=== PATIENT | female | born 1975 | race Caucasian/White ===

== ENCOUNTER → 2017-09-12 | Outpatient (CLI) | payer BC, OTHER ==
--- NOTE | 2017-09-12 09:28 | MM ---
Reason for exam: additional evaluation requested from prior study. Last mammogram was performed 1 year and 10 months ago. History: Patient history of other cancer. Family history of breast cancer in maternal cousin. Benign US breast aspiration single RT of the right breast, November 16, 2015. Benign US biopsy breast VAD LT of the left breast, November 16, 2015. Physical Findings: Nurse Summary: 2cm nodule in the right breast at 10-11 o'clock and 1cm nodule in the left breast at 12 o'clock, cystic cluster (nurse mj). MG Diagnostic Mammo w CAD HUNTER Bilateral CC and MLO view(s) were taken. Prior study comparison: November 16, 2015, bilateral MG diagnostic antoni BI wo CAD. November 09, 2015, bilateral MG 3d diag mammo w/cad HUNTER. The breast tissue is extremely dense which could obscure a lesion on mammography. Stable benign calcifications. There is chronic nodularity bilaterally. No significant new findings when compared with previous films. These results were verbally communicated with the patient and result sheet given to the patient on 09/12/17. ASSESSMENT: Incomplete: need additional imaging evaluation, BI-RAD 0 RECOMMENDATION: Ultrasound of both breasts. Manage patient on a clinical basis.
--- NOTE | 2017-09-12 09:31 | USB ---
Reason for exam: additional evaluation requested from prior study. History: Patient history of other cancer. Family history of breast cancer in maternal cousin. Benign US breast aspiration single RT of the right breast, November 16, 2015. Benign US biopsy breast VAD LT of the left breast, November 16, 2015. US Breast BILAT Right complete breast ultrasound includes all four quadrants, the retroareolar region and axilla. Finding demonstrates a 1.8 x 1.3 x 2.2cm oval, mixed, hypoechoic lesion at 12 o'clock and a 1.9 x 0.8 x 1.5cm oval, cystic lesion at 10 o'clock. Left complete breast ultrasound includes all four quadrants, the retroareolar region and axilla. Finding demonstrates a 1.5 x 0.5 x 1.1cm oval, cystic lesion at 12 o'clock, a 1.5 x 0.5cm oval, cystic lesion at 2 o'clock, a 1.3 x 0.7 x 1.0cm oval, solid, hypoechoic lesion at 3 o'clock previously biopsied and a 1.0 x 0.4 x 1.0cm lobular, mixed, hypoechoic lesion at 5 o'clock. Multicystic breast, largest cyst measured bilaterally. These results were verbally communicated with the patient and result sheet given to the patient on 09/12/17. ASSESSMENT: Probably benign, BI-RAD 3 RECOMMENDATION: Ultrasound of both breasts in 6 months.
== END | disposition home or self-care (01) ==
LOC: RADMAMWWP 07:48
PROVIDERS: ATTEND Family Medicine
DX: R92.8 Other abnormal and inconclusive findings on diagnostic imaging of breast (principal)
CPT/HCPCS: 77066

== ENCOUNTER 2017-11-26 18:18 | Emergency (ER) | payer BC ==
[2017-11-26] MEDS ORDERED: ACTIVATED CHARCOAL-SORBITOL 50 GM/240 ML BOTTLE PO STA (18:35)
--- NOTE | 2017-11-26 18:38 | ED ---
General Adult HPI - General Chief complaint: Overdose Stated complaint: took 20 tylenol Time Seen by Provider: 11/26/17 18:31 Source: patient, RN notes reviewed Mode of arrival: ambulatory Limitations: no limitations - History of Present Illness Initial comments: Patient is a pleasant 42-year-old female presenting to the emergency department following an overdose. Patient has many stressors. Patient admits to feeling stressed and depressed. Patient took approximately 20 Tylenol at 5:30 PM. Patient has no physical complaints. Patient admits to trying to harm herself. No homicidal thoughts. No hallucinations. No alcohol or street drug use. No history of previous suicide attempt. - Related Data Home Medications Medication Instructions Recorded Confirmed No Known Home Medications 11/26/17 11/26/17 Allergies Allergy/AdvReac Type Severity Reaction Status Date / Time No Known Allergies Allergy Verified 11/26/17 18:42 Review of Systems ROS Statement: Those systems with pertinent positive or pertinent negative responses have been documented in the HPI. ROS Other: All systems not noted in ROS Statement are negative. Constitutional: Denies: fever Eyes: Denies: eye pain ENT: Denies: ear pain Respiratory: Denies: cough Cardiovascular: Denies: chest pain Endocrine: Denies: fatigue Gastrointestinal: Denies: abdominal pain Genitourinary: Denies: dysuria Musculoskeletal: Denies: back pain Skin: Denies: rash Neurological: Denies: weakness Psychiatric: Reports: depression, suicidal thoughts Past Medical History Past Medical History: No Reported History History of Any Multi-Drug Resistant Organisms: None Reported Past Surgical History: No Surgical Hx Reported Past Psychological History: No Psychological Hx Reported Smoking Status: Current every day smoker Past Alcohol Use History: Occasional Past Drug Use History: Marijuana General Exam Limitations: no limitations General appearance: alert, in no apparent distress Head exam: Present: atraumatic Eye exam: Present: normal appearance, PERRL ENT exam: Present: normal oropharynx Neck exam: Present: normal inspection Respiratory exam: Present: normal lung sounds bilaterally Cardiovascular Exam: Present: regular rate, normal rhythm GI/Abdominal exam: Present: soft. Absent: tenderness Extremities exam: Present: normal inspection Neurological exam: Present: alert Psychiatric exam: Present: depressed Skin exam: Present: normal color Course Vital Signs 11/26/17 11/26/17 18:25 21:05 Temperature 98.4 F Pulse Rate 82 70 Respiratory 20 16 Rate Blood Pressure 111/70 108/65 O2 Sat by Pulse 100 99 Oximetry - Reevaluation(s) Reevaluation #1: 11/27/17 00:43 Nursing did contact poison control and patient was cleared. Patient was seen by mental health services who does recommend psychiatric admission. Positive clinical certificate completed. EKG Findings - EKG Comments: EKG Findings:: Normal sinus rhythm 87. NV 148. QRS 94. QT 394. QTC 474. Normal axis. Normal QRS. Nonspecific T waves. Medical Decision Making - Lab Data Result diagrams: 11/26/17 18:41 11/26/17 18:41 Lab Results 11/26/17 11/26/17 11/26/17 Range/Units 18:41 18:41 18:41 WBC 8.2 (3.8-10.6) k/uL RBC 5.23 (3.80-5.40) m/uL Hgb 15.0 (11.4-16.0) gm/dL Hct 45.4 (34.0-46.0) % MCV 86.9 (80.0-100.0) fL MCH 28.6 (25.0-35.0) pg MCHC 33.0 (31.0-37.0) g/dL RDW 12.5 (11.5-15.5) % Plt Count 279 (150-450) k/uL Neutrophils % 72 % Lymphocytes % 20 % Monocytes % 5 % Eosinophils % 2 % Basophils % 1 % Neutrophils # 5.9 (1.3-7.7) k/uL Lymphocytes # 1.6 (1.0-4.8) k/uL Monocytes # 0.4 (0-1.0) k/uL Eosinophils # 0.1 (0-0.7) k/uL Basophils # 0.0 (0-0.2) k/uL PT 10.3 (9.0-12.0) sec INR 1.1 (<1.2) APTT 24.7 (22.0-30.0) sec Sodium 140 (137-145) mmol/L Potassium 4.2 (3.5-5.1) mmol/L Chloride 107 (98-107) mmol/L Carbon Dioxide 25 (22-30) mmol/L Anion Gap 8 mmol/L BUN 9 (7-17) mg/dL Creatinine 0.97 (0.52-1.04) mg/dL Est GFR (CKD-EPI)AfAm 83 (>60 ml/min/1.73 sqM) Est GFR (CKD-EPI)NonAf 72 (>60 ml/min/1.73 sqM) Glucose 96 (74-99) mg/dL Calcium 9.0 (8.4-10.2) mg/dL Total Bilirubin 0.8 (0.2-1.3) mg/dL AST 13 L (14-36) U/L ALT 20 (9-52) U/L Alkaline Phosphatase 49 (38-126) U/L Total Protein 6.7 (6.3-8.2) g/dL Albumin 4.2 (3.5-5.0) g/dL Urine HCG, Qual (Not Detectd) Salicylates <1.0 mg/dL Urine Opiates Screen (NotDetected) Ur Oxycodone Screen (NotDetected) Urine Methadone Screen (NotDetected) Ur Propoxyphene Screen (NotDetected) Acetaminophen 171.7 H* ug/mL Ur Barbiturates Screen (NotDetected) U Tricyclic Antidepress (NotDetected) Ur Phencyclidine Scrn (NotDetected) Ur Amphetamines Screen (NotDetected) U Methamphetamines Scrn (NotDetected) U Benzodiazepines Scrn (NotDetected) Urine Cocaine Screen (NotDetected) U Marijuana (THC) Screen (NotDetected) Serum Alcohol <10 mg/dL 11/26/17 11/26/17 11/26/17 Range/Units 18:41 18:41 21:30 WBC (3.8-10.6) k/uL RBC (3.80-5.40) m/uL Hgb (11.4-16.0) gm/dL Hct (34.0-46.0) % MCV (80.0-100.0) fL MCH (25.0-35.0) pg MCHC (31.0-37.0) g/dL RDW (11.5-15.5) % Plt Count (150-450) k/uL Neutrophils % % Lymphocytes % % Monocytes % % Eosinophils % % Basophils % % Neutrophils # (1.3-7.7) k/uL Lymphocytes # (1.0-4.8) k/uL Monocytes # (0-1.0) k/uL Eosinophils # (0-0.7) k/uL Basophils # (0-0.2) k/uL PT (9.0-12.0) sec INR (<1.2) APTT (22.0-30.0) sec Sodium (137-145) mmol/L Potassium (3.5-5.1) mmol/L Chloride (98-107) mmol/L Carbon Dioxide (22-30) mmol/L Anion Gap mmol/L BUN (7-17) mg/dL Creatinine (0.52-1.04) mg/dL Est GFR (CKD-EPI)AfAm (>60 ml/min/1.73 sqM) Est GFR (CKD-EPI)NonAf (>60 ml/min/1.73 sqM) Glucose (74-99) mg/dL Calcium (8.4-10.2) mg/dL Total Bilirubin (0.2-1.3) mg/dL AST (14-36) U/L ALT (9-52) U/L Alkaline Phosphatase (38-126) U/L Total Protein (6.3-8.2) g/dL Albumin (3.5-5.0) g/dL Urine HCG, Qual Not Detected (Not Detectd) Salicylates mg/dL Urine Opiates Screen Not Detected (NotDetected) Ur Oxycodone Screen Not Detected (NotDetected) Urine Methadone Screen Not Detected (NotDetected) Ur Propoxyphene Screen Not Detected (NotDetected) Acetaminophen 92.7 H* ug/mL Ur Barbiturates Screen Not Detected (NotDetected) U Tricyclic Antidepress Not Detected (NotDetected) Ur Phencyclidine Scrn Not Detected (NotDetected) Ur Amphetamines Screen Not Detected (NotDetected) U Methamphetamines Scrn Not Detected (NotDetected) U Benzodiazepines Scrn Not Detected (NotDetected) Urine Cocaine Screen Not Detected (NotDetected) U Marijuana (THC) Screen Not Detected (NotDetected) Serum Alcohol mg/dL Disposition Clinical Impression: Depression, Suicide attempt Disposition: TRANSFER TO PSYCH HOSP/UNIT Is patient prescribed a controlled substance at d/c from ED?: No Referrals: Treasure Cabezas MD [Primary Care Provider] - 1-2 days Time of Disposition: 00:44
[2017-11-26 19:07] LABS: ALT 20 U/L (9-52); AST 13 U/L (14-36); Albumin 4.2 g/dL (3.5-5.0); Alcohol <10 mg/dL; Alkaline Phosphatase 49 U/L (38-126); Anion Gap 8 mmol/L; Blood Urea Nitrogen 9 mg/dL (7-17); Carbon Dioxide 25 mmol/L (22-30); Chloride 107 mmol/L (98-107); Glucose 96 mg/dL (74-99); Potassium 4.2 mmol/L (3.5-5.1); Salicylate <1.0 mg/dL; Sodium 140 mmol/L (137-145); Total Bilirubin 0.8 mg/dL (0.2-1.3); Total Protein 6.7 g/dL (6.3-8.2)
[2017-11-26 19:10] LABS: INR 1.1 (<1.2); Partial Thromboplastin Time 24.7 sec (22.0-30.0); Prothrombin Time 10.3 sec (9.0-12.0)
[2017-11-26 19:12] LABS: Acetaminophen 171.7 ug/mL
[2017-11-26 19:29] LABS: Amphetamine Screen,Urine Not Detected (NotDetected); Barbiturate Screen,Urine Not Detected (NotDetected); Benzodiazepines Screen,Urine Not Detected (NotDetected); Cocaine Screen,Urine Not Detected (NotDetected); Methadone Screen, Urine Not Detected (NotDetected); Opiate Screen,Urine Not Detected (NotDetected); Oxycodone Screen, Urine Not Detected (NotDetected); Phencyclidine Screen,Urine Not Detected (NotDetected); Tricyclic Antidepressant,Urine Not Detected (NotDetected); Urn Cannabinoid Scrn Not Detected (NotDetected)
[2017-11-26 19:35] LABS: Basophils % (A) 1 %; Eosinophils # (A) 0.1 k/uL (0-0.7); Eosinophils % (A) 2 %; HCT 45.4 % (34.0-46.0); Lymphocytes # (A) 1.6 k/uL (1.0-4.8); Lymphocytes % (A) 20 %; MCH 28.6 pg (25.0-35.0); MCV 86.9 fL (80.0-100.0); Mean Platelet Volume 6.9; Monocytes # (A) 0.4 k/uL (0-1.0); Monocytes % (A) 5 %; Neutrophils # (A) 5.9 k/uL (1.3-7.7); Neutrophils % (A) 72 %; Platelet Count 279 k/uL (150-450); RBC 5.23 m/uL (3.80-5.40); RDW 12.5 % (11.5-15.5); WBC 8.2 k/uL (3.8-10.6)
[2017-11-27 11:52] VITALS: BP 111/66; PULSE 73; RESP 16; TEMP 97.9
== END 2017-11-27 12:06 ==
LOC: EC 18:18
DX: T39.1X2A Poisoning by 4-Aminophenol derivatives, intentional self-harm, initial encounter (principal); F32.9 Major depressive disorder, single episode, unspecified; F17.200 Nicotine dependence, unspecified, uncomplicated
CPT/HCPCS: 36415; 80053; 80306; 80320; 81025; 82075; 83520; 85025; 85610; 85730; 93005; 99285

== ENCOUNTER 2018-10-13 19:22 | Emergency (ER) | payer BC, OTHER ==
[2018-10-13 19:30] VITALS: TEMP 97.6
[2018-10-13] MEDS ORDERED: SODIUM CHLORIDE 0.9% 1,000 ML IV STA ×2 (19:59)
[2018-10-13] MEDS ORDERED: KETOROLAC 30 MG/ML 1 ML VIAL IVP STA (19:59)
--- NOTE | 2018-10-13 20:18 | ED ---
Abdominal Pain HPI - General Source: patient, family, RN notes reviewed, old records reviewed Mode of arrival: ambulatory Limitations: no limitations <Sarah Cuellar - Last Filed: 10/14/18 11:02> <Kriss Link - Last Filed: 10/15/18 06:03> - General Chief Complaint: Abdominal Pain Stated Complaint: Abd pain Time Seen by Provider: 10/13/18 19:33 - History of Present Illness Initial Comments: Patient is a 43-year-old female presents to ED today with right-sided abdominal pain. Patient reports it seemed have a ripping motion in her abdomen on doing workouts few days ago. Patient states that she's has pain with any range of motion of her abdomen abdominal muscles. She complains of feeling a bulge in the right side of her lower abdomen. She denies any fevers or chills or other complaints. (Sarah Cuellar) - Related Data Home Medications Medication Instructions Recorded Confirmed No Known Home Medications 11/26/17 11/26/17 Allergies Allergy/AdvReac Type Severity Reaction Status Date / Time No Known Allergies Allergy Verified 10/13/18 19:30 Review of Systems ROS Other: All systems not noted in ROS Statement are negative. <Sarah Cuellar - Last Filed: 10/14/18 11:02> ROS Other: All systems not noted in ROS Statement are negative. <Kriss Link - Last Filed: 10/15/18 06:03> ROS Statement: Those systems with pertinent positive or pertinent negative responses have been documented in the HPI. Past Medical History Past Medical History: No Reported History History of Any Multi-Drug Resistant Organisms: None Reported Past Surgical History: Orthopedic Surgery Past Psychological History: No Psychological Hx Reported Smoking Status: Current every day smoker Past Alcohol Use History: Occasional Past Drug Use History: Marijuana <Sarah Cuellar - Last Filed: 10/14/18 11:02> General Exam Limitations: no limitations General appearance: alert, in no apparent distress Head exam: Present: atraumatic, normocephalic, normal inspection Eye exam: Present: normal appearance, PERRL, EOMI. Absent: scleral icterus, conjunctival injection, periorbital swelling ENT exam: Present: normal exam, mucous membranes moist Neck exam: Present: normal inspection Respiratory exam: Present: normal lung sounds bilaterally. Absent: respiratory distress, wheezes, rales, rhonchi, stridor Cardiovascular Exam: Present: regular rate, normal rhythm, normal heart sounds. Absent: systolic murmur, diastolic murmur, rubs, gallop, clicks GI/Abdominal exam: Present: soft, tenderness (Over Right Loewer quadrant and umbilical area. ), normal bowel sounds. Absent: distended, guarding, rebound, rigid Extremities exam: Present: normal inspection, full ROM, normal capillary refill. Absent: tenderness, pedal edema, joint swelling, calf tenderness Back exam: Present: normal inspection Neurological exam: Present: alert, oriented X3, CN II-XII intact Psychiatric exam: Present: normal affect <Sarah Cuellar - Last Filed: 10/14/18 11:02> - General Exam Comments Initial Comments: Well appearing 43 year old female, no distress. (Sarah Cuellar) Course Vital Signs 10/13/18 10/13/18 19:27 22:01 Temperature 97.6 F Pulse Rate 74 78 Respiratory 18 16 Rate Blood Pressure 115/62 110/71 O2 Sat by Pulse 98 99 Oximetry Medical Decision Making - Lab Data Result diagrams: 10/13/18 20:16 10/13/18 20:16 - Radiology Data Radiology results: report reviewed <Sarah Cuellar - Last Filed: 10/14/18 11:02> - Lab Data Result diagrams: 10/13/18 20:16 10/13/18 20:16 <Kriss Link - Last Filed: 10/15/18 06:03> - Medical Decision Making 43 year old female presents today for evaluation of right abdominal pain, worse withmovement. She has bulge noted in abdomen, and complains of signifacant tenderness. Labs were reviewed and normal. CT abdomen shows no sign of hernia, or appendicitis. She has evidence of multiple hepatic cyst and uterine fibroid. Discussed PCP follow up. DC with diagnosis of musclular skeletal tear of abdomen wall muscles and discussed close PCP follow up and antiiflammaotry medication. (Sarah Cuellar) I was available for consultation in the emergency department. The history and physical exam were done by the midlevel provider. I was consulted for this patient's care. I reviewed the case with the midlevel provider and based on their presentation of the patient, I agree with the assessment, medical decision making and plan of care as documented. Chart was dictated using [employer] dictation software. Attempts were made to correct any dictation errors however some typographical errors may persist. (Kriss Link) - Lab Data Lab Results 10/13/18 10/13/18 10/13/18 Range/Units 20:16 20:16 20:16 WBC 8.5 (3.8-10.6) k/uL RBC 4.80 (3.80-5.40) m/uL Hgb 13.8 (11.4-16.0) gm/dL Hct 42.1 (34.0-46.0) % MCV 87.7 (80.0-100.0) fL MCH 28.7 (25.0-35.0) pg MCHC 32.8 (31.0-37.0) g/dL RDW 12.6 (11.5-15.5) % Plt Count 282 (150-450) k/uL Neutrophils % 62 % Lymphocytes % 20 % Monocytes % 6 % Eosinophils % 9 % Basophils % 1 % Neutrophils # 5.2 (1.3-7.7) k/uL Lymphocytes # 1.7 (1.0-4.8) k/uL Monocytes # 0.5 (0-1.0) k/uL Eosinophils # 0.8 H (0-0.7) k/uL Basophils # 0.1 (0-0.2) k/uL PT 10.3 (9.0-12.0) sec INR 1.0 (<1.2) APTT 26.7 (22.0-30.0) sec Sodium 139 (137-145) mmol/L Potassium 4.1 (3.5-5.1) mmol/L Chloride 106 (98-107) mmol/L Carbon Dioxide 26 (22-30) mmol/L Anion Gap 7 mmol/L BUN 13 (7-17) mg/dL Creatinine 0.76 (0.52-1.04) mg/dL Est GFR (CKD-EPI)AfAm >90 (>60 ml/min/1.73 sqM) Est GFR (CKD-EPI)NonAf >90 (>60 ml/min/1.73 sqM) Glucose 99 (74-99) mg/dL Calcium 8.8 (8.4-10.2) mg/dL Total Bilirubin 0.5 (0.2-1.3) mg/dL AST 25 (14-36) U/L ALT 13 (9-52) U/L Alkaline Phosphatase 51 (38-126) U/L Total Protein 6.7 (6.3-8.2) g/dL Albumin 4.2 (3.5-5.0) g/dL Amylase 49 (30-110) U/L Lipase 312 H (23-300) U/L Urine Color Urine Appearance (Clear) Urine pH (5.0-8.0) Ur Specific [place] (1.001-1.035) Urine Protein (Negative) Urine Glucose (UA) (Negative) Urine Ketones (Negative) Urine Blood (Negative) Urine Nitrite (Negative) Urine Bilirubin (Negative) Urine Urobilinogen (<2.0) mg/dL Ur Leukocyte Esterase (Negative) Urine RBC (0-5) /hpf Ur Squamous Epith Cells (0-4) /hpf Urine Mucus (None) /hpf 10/13/18 Range/Units 20:30 WBC (3.8-10.6) k/uL RBC (3.80-5.40) m/uL Hgb (11.4-16.0) gm/dL Hct (34.0-46.0) % MCV (80.0-100.0) fL MCH (25.0-35.0) pg MCHC (31.0-37.0) g/dL RDW (11.5-15.5) % Plt Count (150-450) k/uL Neutrophils % % Lymphocytes % % Monocytes % % Eosinophils % % Basophils % % Neutrophils # (1.3-7.7) k/uL Lymphocytes # (1.0-4.8) k/uL Monocytes # (0-1.0) k/uL Eosinophils # (0-0.7) k/uL Basophils # (0-0.2) k/uL PT (9.0-12.0) sec INR (<1.2) APTT (22.0-30.0) sec Sodium (137-145) mmol/L Potassium (3.5-5.1) mmol/L Chloride (98-107) mmol/L Carbon Dioxide (22-30) mmol/L Anion Gap mmol/L BUN (7-17) mg/dL Creatinine (0.52-1.04) mg/dL Est GFR (CKD-EPI)AfAm (>60 ml/min/1.73 sqM) Est GFR (CKD-EPI)NonAf (>60 ml/min/1.73 sqM) Glucose (74-99) mg/dL Calcium (8.4-10.2) mg/dL Total Bilirubin (0.2-1.3) mg/dL AST (14-36) U/L ALT (9-52) U/L Alkaline Phosphatase (38-126) U/L Total Protein (6.3-8.2) g/dL Albumin (3.5-5.0) g/dL Amylase (30-110) U/L Lipase (23-300) U/L Urine Color Yellow Urine Appearance Cloudy H (Clear) Urine pH 8.0 (5.0-8.0) Ur Specific [place] 1.023 (1.001-1.035) Urine Protein Trace H (Negative) Urine Glucose (UA) Negative (Negative) Urine Ketones Negative (Negative) Urine Blood Negative (Negative) Urine Nitrite Negative (Negative) Urine Bilirubin Negative (Negative) Urine Urobilinogen 3.0 (<2.0) mg/dL Ur Leukocyte Esterase Negative (Negative) Urine RBC 3 (0-5) /hpf Ur Squamous Epith Cells 7 H (0-4) /hpf Urine Mucus Occasional H (None) /hpf - Radiology Data CT shows evidence of multiple hepatic cysts. Right-sided uterine fibroid noted. (Sarah Cuellar) Disposition Is patient prescribed a controlled substance at d/c from ED?: No Time of Disposition: 21:37 <Sarah Cuellar - Last Filed: 10/14/18 11:02> <Kriss Link - Last Filed: 10/15/18 06:03> Clinical Impression: Abdominal muscle strain, Uterine fibroid, Hepatic cyst Disposition: HOME SELF-CARE Condition: Good Instructions (If sedation given, give patient instructions): Muscle Strain (ED) Additional Instructions: Patient has a close follow-up with primary care physician. Patient stating Motrin Tylenol for pain. Return to the emergency department if any alarming signs or symptoms occur. Referrals: Treasure Cabezas MD [Primary Care Provider] - 1-2 days
[2018-10-13 20:33] LABS: Basophils # (A) 0.1 k/uL (0-0.2); Basophils % (A) 1 %; Eosinophils # (A) 0.8 k/uL (0-0.7); Eosinophils % (A) 9 %; HCT 42.1 % (34.0-46.0); HGB 13.8 gm/dL (11.4-16.0); Lymphocytes # (A) 1.7 k/uL (1.0-4.8); Lymphocytes % (A) 20 %; MCH 28.7 pg (25.0-35.0); MCHC 32.8 g/dL (31.0-37.0); MCV 87.7 fL (80.0-100.0); Monocytes # (A) 0.5 k/uL (0-1.0); Monocytes % (A) 6 %; Neutrophils # (A) 5.2 k/uL (1.3-7.7); Neutrophils % (A) 62 %; Platelet Count 282 k/uL (150-450); RDW 12.6 % (11.5-15.5); WBC 8.5 k/uL (3.8-10.6)
[2018-10-13 20:43] LABS: Partial Thromboplastin Time 26.7 sec (22.0-30.0); Prothrombin Time 10.3 sec (9.0-12.0)
[2018-10-13 20:44] LABS: ALT 13 U/L (9-52); AST 25 U/L (14-36); African American GFR (CKD) >90 (>60 ml/min/1.73 sqM); Albumin 4.2 g/dL (3.5-5.0); Alkaline Phosphatase 51 U/L (38-126); Amylase 49 U/L (30-110); Anion Gap 7 mmol/L; Blood Urea Nitrogen 13 mg/dL (7-17); Calcium 8.8 mg/dL (8.4-10.2); Carbon Dioxide 26 mmol/L (22-30); Chloride 106 mmol/L (98-107); Glucose 99 mg/dL (74-99); Lipase 312 U/L (23-300); Potassium 4.1 mmol/L (3.5-5.1); Sodium 139 mmol/L (137-145); Total Bilirubin 0.5 mg/dL (0.2-1.3); Total Protein 6.7 g/dL (6.3-8.2)
[2018-10-13 20:47] LABS: Appearance,Urine Cloudy (Clear); Bilirubin,Urine Negative (Negative); Blood,Urine Negative (Negative); Color,Urine Yellow; Glucose,Urine (UA) Negative (Negative); Ketones,Urine Negative (Negative); Leukocyte Esterase,Urine Negative (Negative); Mucus,Urine Occasional /hpf; Nitrite,Urine Negative (Negative); Protein,Urine Trace (Negative); RBC,Urine 3 /hpf (0-5); Specific Gravity,Urine 1.023 (1.001-1.035); Squamous Epithelial Cell,Urine 7 /hpf (0-4)
--- NOTE | 2018-10-13 21:11 | CT ---
EXAMINATION TYPE: CT abdomen pelvis w con DATE OF EXAM: 10/13/2018 COMPARISON: None HISTORY: Abdominal pain CT DLP: 592.9 mGycm Automated exposure control for dose reduction was used. TECHNIQUE: Helical acquisition of images was performed from the lung bases through the pelvis. CONTRAST: Performed without Oral Contrast and with IV Contrast, patient injected with 100 mL of Isovue 300. FINDINGS: Lung bases are clear. There is no pleural effusion. Heart size is normal. There is no pericardial eff usion. There are multiple cysts in the liver that measure up to 2.2 cm. Gallbladder is normal in size. Stoma ch appears normal. Spleen appears normal. There is no pancreatic mass. There is no adrenal mass. Kidneys show satisfactory contrast opacification. There is no hydronephrosi s. Bladder distends smoothly. Uterus is anteverted. There is no free fluid in the pelvis. There is no inguinal hernia. There is no intestinal wall thickening. There is no sign of bowel obstruction. Ther e is no mesenteric edema. There is no sign of free air or ascites. The appendix appears normal. There is a somewhat exophytic 3.6 cm mass on the right side of the uterus that is probably a fibroid. Lumbar vertebra have normal alignment. Disc spaces are fairly normal. Bony pelvis is intact. IMPRESSION: MULTIPLE HEPATIC CYSTS. Right-sided uterine fibroid.
[2018-10-13 22:01] VITALS: BP 110/71; PULSE 78; RESP 16
== END 2018-10-13 22:00 | disposition home or self-care (01) ==
LOC: EC 19:22
DX: S39.011A Strain of muscle, fascia and tendon of abdomen, initial encounter (principal); D25.9 Leiomyoma of uterus, unspecified; K76.89 Other specified diseases of liver; F17.200 Nicotine dependence, unspecified, uncomplicated
CPT/HCPCS: 99284; 96374; 96361 ×2; 36415; 80053; 82150; 83690; 85025; 85610; 85730; 81001; 74177; J1885; Q9967

== ENCOUNTER → 2019-05-16 | Outpatient (CLI) | payer BC ==
--- NOTE | 2019-05-19 08:34 | MM ---
Reason for exam: clinical finding. Last mammogram was performed 1 year and 8 months ago. History: Patient history of other cancer. Family history of breast cancer in maternal cousin. Benign US breast aspiration single RT of the right breast, November 16, 2015. Benign US biopsy breast VAD LT of the left breast, November 16, 2015. Took hormonal contraceptives for 2 years. Indicated problem(s): palpable abnormality in the right breast. Physical Findings: Nurse Summary: 0.5cm nodule in the right breast at 12 o'clock (nurse umair). MG 3D Diag Mammo W/Cad HUNTER Bilateral CC and MLO view(s) were taken. Prior study comparison: September 12, 2017, bilateral MG diagnostic mammo w CAD HUNTER. November 16, 2015, bilateral MG diagnostic antoni BI wo CAD. The breast tissue is extremely dense which could obscure a lesion on mammography. Finding: There are typically benign dystrophic, round calcifications in both breasts. Previous mammotome biopsy in the right and left breast. There is a chronic nodularity in the left breast. There is no discrete abnormality. These results were verbally communicated with the patient and result sheet given to the patient on 05/16/19. ASSESSMENT: Incomplete: need additional imaging evaluation, BI-RAD 0 RECOMMENDATION: Ultrasound of the right breast. (right palpable)
--- NOTE | 2019-05-19 08:36 | USB ---
Reason for exam: additional evaluation requested from abnormal screening. History: Patient history of other cancer. Family history of breast cancer in maternal cousin. Benign US breast aspiration single RT of the right breast, November 16, 2015. Benign US biopsy breast VAD LT of the left breast, November 16, 2015. Took hormonal contraceptives for 2 years. US Breast Limited RT Right limited breast ultrasound including focal area of concern, retroareolar and axilla demonstrates a 19 x 11 x 13mm oval, hypoechoic lesion at 12 o'clock BB seen on previous, a debris filled cyst. Several large thin walled cysts. No significant change from 09/12/17. These results were verbally communicated with the patient and result sheet given to the patient on 05/16/19. ASSESSMENT: Benign, BI-RAD 2 RECOMMENDATION: Follow-up diagnostic mammogram of both breasts in 1 year.
== END | disposition home or self-care (01) ==
LOC: RADMAMWWP 13:37
PROVIDERS: ATTEND Nurse Practitioner Gerontology
DX: N63.10 Unspecified lump in the right breast, unspecified quadrant (principal); N63.20 Unspecified lump in the left breast, unspecified quadrant; R92.8 Other abnormal and inconclusive findings on diagnostic imaging of breast
CPT/HCPCS: 77062; 77066

== ENCOUNTER → 2020-04-28 | Outpatient (CLI) | payer BC, OTHER ==
--- NOTE | 2020-04-28 14:07 | MM ---
Reason for exam: clinical finding. Last mammogram was performed 11 months ago. History: Patient history of other cancer. Family history of breast cancer in maternal cousin at age 47. Pre-pectoral saline implants in both breasts, 2019. Benign US breast aspiration single RT of the right breast, November 16, 2015. Benign US biopsy breast VAD LT of the left breast, November 16, 2015. Took hormonal contraceptives for 2 years. Indicated problem(s): palpable abnormality in the right breast. Physical Findings: Nurse Summary: 0.5 x 1cm and 1 x 1.5cm nodule in the right breast at 12 o'clock (nurse ts). MG 3D Diag Mammo Imp W/Cad HUNTER Bilateral CC, MLO, and ID view(s) were taken. Prior study comparison: May 16, 2019, bilateral MG 3d diag mammo w/cad HUNTER. September 12, 2017, bilateral MG diagnostic mammo w CAD HUNTER. The breast tissue is extremely dense which could obscure a lesion on mammography. Finding #1: There is a circumscribed round mass in the left breast. Finding #2: There are typically benign round calcifications in the right breast. Previous mammotome biopsy in the left breast. New sublandular implants. These results were verbally communicated with the patient and result sheet given to the patient on 04/28/20. ASSESSMENT: Incomplete: need additional imaging evaluation, BI-RAD 0 RECOMMENDATION: Ultrasound of both breasts. (left nodules, right palpable)
--- NOTE | 2020-04-28 14:11 | USB ---
Reason for exam: additional evaluation requested from abnormal screening. History: Patient history of other cancer. Family history of breast cancer in maternal cousin at age 47. Pre-pectoral saline implants in both breasts, 2020. Benign US breast aspiration single RT of the right breast, November 16, 2015. Benign US biopsy breast VAD LT of the left breast, November 16, 2015. Took hormonal contraceptives for 2 years. US Breast Limited BILAT Right limited breast ultrasound including focal area of concern, retroareolar and axilla demonstrates a 0.4 x 1.2 x 0.9cm oval, complex, cystic lesion at 12 o'clock BB, a 2.1 x 2.2 x 1.9cm oval, cystic lesion at 12 o'clock BB, a 0.6 x 0.7 x 0.4cm oval, complex, cystic lesion at 2 o'clock and a 0.8 x 0.8 x 0.6cm oval lymph node at the axilla. Left limited breast ultrasound including focal area of concern, retroareolar and axilla demonstrates a 3.5 x 2.2 x 1.0cm oval, complex, cystic lesion at 3 o'clock, a 1.1 x 1.1 x 0.7cm cystic lesion at 11 o'clock, a 0.4 x 0.5 x 0.3cm cystic cluster and a 1.0 x 0.9 x 0.6cm lymph node at the axilla. Benign, multiple thin walled cysts with some debris filled cysts. These results were verbally communicated with the patient and result sheet given to the patient on 04/28/20. ASSESSMENT: Benign, BI-RAD 2 RECOMMENDATION: Routine screening mammogram of both breasts in 1 year.
== END | disposition home or self-care (01) ==
LOC: RADMAMWWP 08:57
PROVIDERS: ATTEND Nurse Practitioner Gerontology
DX: N63.20 Unspecified lump in the left breast, unspecified quadrant (principal); N63.10 Unspecified lump in the right breast, unspecified quadrant; R92.8 Other abnormal and inconclusive findings on diagnostic imaging of breast
CPT/HCPCS: 77062; 77066

== ENCOUNTER → 2022-10-25 | Outpatient (CLI) | payer BC ==
--- NOTE | 2022-10-25 14:01 | MM ---
Reason for Exam: Clinical finding. Last mammogram was performed 2 year(s) and 6 month(s) ago. Patient History: Menarche at age 11. First Full-Term at age 26. Premenopausal. Patient has history of breast feeding. Breast cancer, left, age 42. Patient used Hormonal Contraceptives for 2 years. 11/16/2015, Benign Cyst Aspiration on the right side. 11/16/2015, Benign Core Biopsy on the left side. 2019, Bilateral Implants. Maternal cousin had breast cancer, age 47. Last menstrual period: 10/11/2022 Prior Study Comparison: 11/09/2015 Bilateral Diagnostic Mammogram, [facility]. 11/16/2015 Bilateral Diagnostic Mammogram, [facility]. 09/12/2017 Bilateral Diagnostic Mammogram, [facility]. 05/16/2019 Bilateral Diagnostic Mammogram, [facility]. 04/28/2020 Bilateral Diagnostic Mammogram, [facility]. Tissue Density: The breast tissue is extremely dense which could obscure a lesion on mammography. Findings: Analyzed By CAD. Bilateral saline implants are intact. Smoothly marginated masses upper outer left breast and at the site of clinical concern lower inner left breast require further evaluation with ultrasound. Chronic nodularity right breast. Stable benign-appearing calcifications bilaterally. Overall Assessment: Incomplete: need additional imaging evaluation, BI-RAD 0 Management: Diagnostic Breast Ultrasound of the left breast. . Results were given to the patient verbally at the time of exam. Patient should continue monthly self-breast exams. A clinical breast exam by your physician is recommended on an annual basis. This exam should not preclude additional follow-up of suspicious palpable abnormalities. Note on Rachel scores and lifetime risk: 1. A Rachel score greater than 3% is considered moderate risk. If this is the case, consider specialist referral to assess eligibility for a risk reducing agent. 2. If overall lifetime risk for the development of breast cancer is 20% or higher, the patient may qualify for future screening with alternating mammogram and breast MRI. Electronically signed and approved by: Dick Valdez M.D. Radiologis
--- NOTE | 2022-10-25 14:36 | USB ---
Reason for Exam: Clinical finding. Patient History: Menarche at age 11. First Full-Term at age 26. Premenopausal. Patient has history of breast feeding. Breast cancer, left, age 42. Patient used Hormonal Contraceptives for 2 years. 11/16/2015, Benign Cyst Aspiration on the right side. 11/16/2015, Benign Core Biopsy on the left side. 2019, Bilateral Implants. Maternal cousin had breast cancer, age 47. Technique: Method: Targeted. Prior Study Comparison: 09/12/2017 Bilateral Diagnostic Mammogram, [facility]. 05/16/2019 Bilateral Diagnostic Mammogram, [facility]. 04/28/2020 Bilateral Diagnostic Mammogram, [facility]. Findings: The upper outer quadrant of the left breast, the area of palpable concern of the left breast, the axilla of the left breast and the retroareolar of the left breast were scanned. Multiple left-sided simple cysts noted the largest cyst at the 3:00 position measuring 5.0 x 1.5 cm. At the site of palpable abnormality there is a cluster of cysts noted measuring 1.3 cm. No solid masses are detected. Overall Assessment: Benign, BI-RAD 2 Management: Screening Mammogram of both breasts in 1 year. A clinical breast exam by your physician is recommended on an annual basis and results should be correlated with mammographic findings. This exam should not preclude additional follow-up of suspicious palpable abnormalities. Results were given to the patient verbally at the time of exam. Electronically signed and approved by: Dick Valdez M.D. Radiologis
== END | disposition home or self-care (01) ==
LOC: RADMAMWWP 12:50
PROVIDERS: ATTEND Family Medicine
DX: N63.20 Unspecified lump in the left breast, unspecified quadrant (principal); Z80.3 Family history of malignant neoplasm of breast
CPT/HCPCS: 77062; 77066

== ENCOUNTER → 2023-08-16 | Outpatient (CLI) | payer BC ==
--- NOTE | 2023-08-16 08:21 | USB ---
Patient History: Menarche at age 11. First Full-Term at age 26. Premenopausal. Patient has history of breast feeding. Patient used Hormonal Contraceptives for 2 years. 11/16/2015, Benign Cyst Aspiration on the right side. 11/16/2015, Benign Core Biopsy on the left side. 2019, Bilateral Implants. Maternal cousin had breast cancer, age 47. Risk Values: Rachel 5 year model risk: 1.3%. NCI Lifetime model risk: 11.6%. Technique: Method: Targeted. Prior Study Comparison: 05/16/2019 Bilateral Diagnostic Mammogram, [facility]. 04/28/2020 Bilateral Diagnostic Mammogram, [facility]. 10/25/2022 Bilateral MG 3D diag mammo imp w/cad [facility], [facility]. Findings: The upper section of the breast of the right breast, the area of palpable concern of the left breast, the axilla of both breasts and the retroareolar of both breasts were scanned. Right breast: Stable hypoechoic lesion right 12:00 position 6 cm from the nipple measuring 1.2 x 0.9 cm. There is a new hypoechoic area at the 12:00 position 7 cm from the nipple measuring 0.8 x 0.7 cm for which tissue diagnosis is recommended given the degree of posterior acoustic shadowing. Septated cyst at the right 2:00 position 1 cm from the nipple measuring 2.9 x 0.9 cm. Left breast: Septated thick-walled cyst at the left breast upper-outer quadrant 2 cm from the nipple measuring 4.9 x 2.6 cm. Aspiration is recommended. Overall Assessment: Suspicious, BI-RAD 4 Management: Ultrasound Core Biopsy of the right breast. A clinical breast exam by your physician is recommended on an annual basis and results should be correlated with mammographic findings. This exam should not preclude additional follow-up of suspicious palpable abnormalities. Results were given to the patient verbally at the time of exam. Electronically signed and approved by: Dick Valdez M.D. Radiologis
--- NOTE | 2023-08-16 11:28 | MM ---
Reason for Exam: Clinical finding. Last screening mammogram was performed 9 month(s) ago. Indicated Problems: Lump or thickening of the left side for 2 Week(s). Patient History: Menarche at age 11. First Full-Term at age 26. Premenopausal. Patient has history of breast feeding. Patient used Hormonal Contraceptives for 2 year. 11/16/2015, Benign Cyst Aspiration on the right side. 11/16/2015, Benign Core Biopsy on the left side. 2019, Bilateral Implants. Maternal cousin had breast cancer, age 47. Risk Values: Rachel 5 year model risk: 1.3%. NCI Lifetime model risk: 11.6%. Prior Study Comparison: 04/28/2020 Bilateral Diagnostic Mammogram, [facility]. 10/25/2022 Bilateral MG 3D diag mammo imp w/cad [facility], [facility]. Tissue Density: The breasts are extremely dense, which lowers the sensitivity of mammography. Findings: Analyzed By CAD. Lateral lymph nodes are noted. At the site of clinical concern left breast, there is a mass noted measuring of 4.1 cm upper outer quadrant. Ultrasound is recommended. At the approximate 1 to 2:00 position right breast there is a 3 cm masslike area 2 cm from the nipple. Bilateral breast ultrasound is advised. Overall Assessment: Incomplete: need additional imaging evaluation, BI-RAD 0 Management: Diagnostic Breast Ultrasound of both breasts. Results were given to the patient verbally at the time of exam. Patient should continue monthly self-breast exams. A clinical breast exam by your physician is recommended on an annual basis. This exam should not preclude additional follow-up of suspicious palpable abnormalities. Note on Rachel scores and lifetime risk: 1. A Rachel score greater than 3% is considered moderate risk. If this is the case, consider specialist referral to assess eligibility for a risk reducing agent. 2. If overall lifetime risk for the development of breast cancer is 20% or higher, the patient may qualify for future screening with alternating mammogram and breast MRI. Electronically signed and approved by: Dick Valdez M.D. Radiologis
== END | disposition home or self-care (01) ==
LOC: RADMAMWWP 06:53
PROVIDERS: ATTEND Student in an Organized Health Care Education/Training Program
DX: R92.343 Mammographic extreme density, bilateral breasts (principal); Z80.3 Family history of malignant neoplasm of breast
CPT/HCPCS: 77062; 77066

== ENCOUNTER → 2023-08-23 | Day surgery (SDC) | payer BC ==
--- NOTE | 2023-08-30 14:21 | MM ---
Reason for Exam: Post Procedure Mammogram. Last screening mammogram was performed less than 1 month ago. Patient History: Menarche at age 11. First Full-Term at age 26. Premenopausal. Patient has history of breast feeding. Patient used Hormonal Contraceptives for 2 years. 11/16/2015, Benign Cyst Aspiration on the right side. 11/16/2015, Benign Core Biopsy on the left side. 2020, Bilateral Implants. Maternal cousin had breast cancer, age 47. Risk Values: Rachel 5 year model risk: 1.3%. NCI Lifetime model risk: 11.6%. Prior Study Comparison: 04/28/2020 Bilateral Diagnostic Mammogram, [facility]. 10/25/2022 Bilateral MG 3D diag mammo imp w/cad [facility], [facility]. 08/16/2023 Bilateral US breast limited [facility], [facility]. 08/16/2023 Bilateral MG 3D diag mammo imp w/cad [facility], [facility]. Tissue Density: Left: The breasts are extremely dense, which lowers the sensitivity of mammography. Pathology Description: Location: 3 o'clock. hydro butterfly clip The ultrasound guided cyst aspiration procedure was explained to the patient. The risks, benefits, alternatives were discussed. An informed consent was then obtained. A time out was performed. The patient was placed in supine positioning for imaging and for the procedure. The overlying skin was prepped with betadine and sterilely draped in usual sterile fashion. 4 ml 1% lidocaine was used as anesthetic into the skin and deeper breast tissue up to area of concern in the upper outer quadrant. Under ultrasound guidance, an 18-gauge spinal needle was advanced into the cyst and aspiration yielded 18 mL of yellow liquid pus. The fluid was labeled and sent for laboratory analysis. A butterfly clip was left in lesion. Good hemostasis was obtained with direct pressure. Postprocedure mammogram: The patient was transferred to mammography for physician ordered post procedure mammogram for clip placement verification. The clip is in the expected region of the biopsy. The patient tolerated the procedure well without any immediate complication. The patient was discharged to home in stable condition. Impression: Successful ultrasound guided cyst aspiration left breast. Cytology pending. Pathology Results: Result: Benign, Abscess. Pathology and radiology were reviewed. Findings are concordant. LEFT BREAST, 3:00, FINE NEEDLE ASPIRATE: Dense acute inflammatory cells and histiocytes consistent with abscess versus inflamed cyst contents. Overall Assessment: Benign Assessment: MG diagnostic mammo LT wo CAD. - Left: Benign, BI-RAD 2. Management: Diagnostic Breast Ultrasound of the left breast in 6 months. Electronically signed and approved by: Charli Kaiser D.O. Radiologis
--- NOTE | 2023-08-30 14:22 | USB ---
Risk Values: Rachel 5 year model risk: 1.3%. NCI Lifetime model risk: 11.6%. Pathology Description: Location: 12 o'clock. Cores: 4 Gauge: 18 The procedure of ultrasound guided core biopsy was explained to the patient. Benefits, alternatives, and risks were discussed. An informed consent was then obtained. A timeout was performed. The patient was placed in supine positioning for imaging and for the procedure. The overlying skin was prepped and draped in usual sterile fashion. Lidocaine was used as anesthetic into the skin and subcutaneous tissue up to area of concern in the right breast. Under ultrasound guidance, an 18-gauge vacuum assisted biopsy gun device was used to obtain 4 core samples. A biopsy clip was left at the persistent density. The hypoechoic density just above the prosthesis had a rubbery consistency and displaced with needle placement. With fat and the patient's breast prosthesis procedure was very difficult. At least one sample was within the lesion with the majority samples along the superior margin. The patient tolerated the procedure well without any immediate complication. The patient was kept in the radiology department for short stay after the procedure and then discharged home in stable condition. Postprocedure mammogram: The patient was transferred to mammography for physician ordered post procedure mammogram for clip placement verification. The clip is in the expected region of the biopsy. The patient tolerated the procedure well without any immediate complication. The patient was discharged to home in stable condition. Patient had a lymph node on the contralateral side. Given the infection type appearance of the aspiration as well as no significant interval growth with marginal borderline cortex, the left axillary lymph node was not biopsied at this time. Impression: 1. Successful ultrasound guided core biopsy of area of concern in the right breast, full pathology results to follow. 2. Lymph node left axilla biopsy deferred at this time. Recommendations: 1. Recommendations are pending pathology results. Pathology Results: Result: Benign. Pathology and radiology were reviewed. Findings are discordant. RIGHT BREAST, 12:00, ULTRASOUND GUIDED CORE BIOPSY: Fragment of benign breast tissue with fibrocystic changes. Limited sample. Management: Repeat Procedure of the right breast. Repeat reason: Other. Diagnostic Breast Ultrasound of the right breast in 3 months. Consider either repeat biopsy versus 3 month follow up ultrasound. Electronically signed and approved by: Charli Kaiser D.O. Radiologis
== END ==
LOC: RADUSWWP 12:33
PROVIDERS: ATTEND Surgery
DX: N60.12 Diffuse cystic mastopathy of left breast (principal); N60.11 Diffuse cystic mastopathy of right breast
CPT/HCPCS: 88305; 88173; 77065; 19000; 19083; A4648; 76942

== ENCOUNTER → 2024-06-18 | Outpatient (CLI) | payer BC ==
[2024-06-18 15:07] LABS: HCT 46.2 % (37.2-46.3); HGB 14.4 g/dL (12.0-15.0); MCH 25.5 pg (27.0-32.0); MCHC 31.2 g/dL (32.0-37.0); MCV 81.8 FL (80.0-97.0); Mean Platelet Volume 11.3 FL (9.5-12.2); NRBC Per 100 WBC 0 X 10*3/uL (0.00-0.01); Platelet Count 289 X 10*3/uL (140-440); RBC 5.65 X 10*6/uL (4.10-5.20); RDW 15.4 % (11.5-14.5); WBC 6.04 X 10*3/uL (4.50-10.00)
[2024-06-18 15:34] LABS: BUN/Creat Ratio 15.86 Ratio (12.00-20.00); Blood Urea Nitrogen 11.1 mg/dL (9.0-27.0); Carbon Dioxide 24.2 mmol/L (21.6-31.8); Chloride 104 mmol/L (96-109); Chol/HDL Ratio 2.94 Ratio; Glucose 90 mg/dL (70-110); LDL Cholesterol,Calculated 97.7 mg/dL (0.0-131.0); Potassium 4.5 mmol/L (3.5-5.5); Sodium 140 mmol/L (135-145); VLDL Calculation 15.08 mg/dL (5.00-40.00)
[2024-06-18 15:35] LABS: ALT 7 U/L (8-44); AST 13 U/L (13-35); Albumin 4.4 g/dL (3.8-4.9); Alkaline Phosphatase 64 U/L (41-126); Calcium 9.2 mg/dL (8.7-10.3); Globulin 2.2 g/dL (1.6-3.3); T4, Free (Free Thyroxine) 1.28 ng/dL (0.80-1.80); Total Bilirubin 0.7 mg/dL (0.3-1.2); Total Protein 6.6 g/dL (6.2-8.2)
== END | disposition home or self-care (01) ==
LOC: LABWHC1 09:43
PROVIDERS: ATTEND Internal Medicine Infectious Disease
DX: R63.5 Abnormal weight gain (principal); R53.83 Other fatigue
CPT/HCPCS: 36415; 80053; 80061; 82306; 82607; 83036; 83525; 84439; 84443; 85027